=== PATIENT | male | born 1995 | race Caucasian/White ===

== ENCOUNTER 2017-12-16 19:22 | Emergency (ER) | payer OTHER ==
[~2017-12-16] VITALS: Ht 182.9 cm; Wt 77.1 kg
[2017-12-16 19:32] VITALS: Ht 182.9 cm; Wt 77.1 kg
[2017-12-16 20:50] VITALS: BP 148/78
== END 2017-12-16 20:50 | disposition home or self-care (01) ==
LOC: ED 19:22
DX: T43.595A Adverse effect of other antipsychotics and neuroleptics, initial encounter (principal); Y92.89 Other specified places as the place of occurrence of the external cause